=== PATIENT | female | born 1995 | race Two or more races ===

== ENCOUNTER 2024-06-16 15:12 | Emergency (ER) | payer BC, MEDICAID, SELFPAY ==
[2024-06-16 15:44] VITALS: BP 144/69; PULSE 97; RESP 18; TEMP 36.9; O2SAT 99; BMI 34.3
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
[2024-06-16] MEDS: IBUPROFEN TAB 400 MG TABLET 800 MG PO (16:46)
== END 2024-06-16 17:45 | disposition home or self-care (01) ==
PROVIDERS: Emergency Provider Emergency Medicine; PCP Nurse Practitioner Family
DX: S80.02XA Contusion of left knee, initial encounter (principal); M79.662 Pain in left lower leg; W50.1XXA Accidental kick by another person, initial encounter
CPT/HCPCS: 73562; 73590; 99283; A9270

== ENCOUNTER 2025-03-13 03:12 | Inpatient (IN) | payer BC, MEDICAID, SELFPAY ==
[2025-03-13] VITALS (92 sets, daily range): BP systolic 89–129; BP diastolic 56–74; PULSE 62–106; RESP 17–99; TEMP 36.6–37.1; O2SAT 92–100; BMI 37.0
[2025-03-13 03:46] LABS: ROM Kit Exp Date# 01/18/2028; ROM Kit Lot # 58104371; ROM Swab Mixed By: TA; Rupture of Fetal Membranes Positive (Negative); Swb Mxed in Solvent 1 min? Yes
--- NOTE | 2025-03-13 04:45 | XR_ITS ---
Examination: Complete OB ultrasound greater than 14 weeks Date and time of exam: March 13, 2025 0528 hrs. Indications: Leaking amniotic fluid beginning 4 hours ago, labor evaluation Findings: Viable intrauterine single fetus with single amniotic sac presentation cephalic Cardiac motion 137 BPM Placenta anterior grade 2 Umbilical cord insertion seen Amniotic fluid index 4.4 cm Cervix 3.8 cm Ovaries obscured by the fetus. Composite estimated gestational age based on BPD, head circumference, abdominal circumference, femur length is 39 weeks 6 days, estimated weight 3916.9 g. Survey of intracranial anatomy, spinal anatomy, abdominal anatomy, four-chamber heart performed with no abnormalities identified. Impression: Viable intrauterine gestation cephalic presentation.
--- NOTE | 2025-03-13 05:02 | PD.LDHP ---
Documentation for date of: 03/13/25 OB Labor/Induct. HPI History of Present Illness History of present illness: H and P dictated on STAT line #9 in Nuance: [id number] Meds Home Medications and Allergies Home Medications ?Medication ?Instructions ?Recorded ?Confirmed ?Type ferrous sulfate 325 mg (65 mg mg 03/13/25 History iron) tablet Allergies Allergy/AdvReac Type Severity Reaction Status Date / Time No Known Allergies Allergy Verified 03/13/25 03:47 OB Exam Physical Exam Vital signs: Pulse BP Pulse Ox 82 111/68 98 03/13/25 04:44 03/13/25 04:44 03/13/25 04:09 OB Results Labs 03/13/25 04:59
[2025-03-13 05:10] LABS: Basophils # (Auto) 0.0 Thou/mm3 (0.0-0.2); Basophils % (Auto) 0 % (0-2.5); Eosinophils # (Auto) 0.1 Thou/mm3 (0.0-0.5); Eosinophils % (Auto) 1 % (0-10); Hematocrit 33.2 % (36.0-46.0); Hemoglobin 11.3 g/dL (12.0-16.0); Immature Granulocytes Auto 0.05 Thou/mm3 (0.00-0.00); Lymphocytes # (Auto) 1.7 Thou/mm3 (1.0-4.8); Lymphocytes % (Auto) 16 % (10-50); Mean Corpuscular HGB Conc 34.0 g/dl (31.0-37.0); Mean Corpuscular Hemoglobin 31.8 pg (25.0-35.0); Mean Corpuscular Volume 94 fL (80-100); Monocytes # (Auto) 0.7 Thou/mm3 (0.0-0.8); Monocytes % (Auto) 7 % (0-12); Neutrophils # (Auto) 8.1 Thou/mm3 (1.8-7.7); Neutrophils % (Auto) 77 % (37-80); Nucleated Red Blood Cell # 0.00 Thou/mm3 (0.00-0.00); Nucleated Red Blood Cell % 0 /100 WBC (0); Platelet Count 213 Thou/mm3 (140-440); RDW Standard Deviation 47.3 fL (36.4-46.3); Red Blood Count 3.55 Miln/mm3 (4.00-5.20); White Blood Count 10.6 Thou/mm3 (3.6-11.0)
--- NOTE | 2025-03-13 05:13 | ESHP_ITS ---
RE: CARLOS MARCH : 1995 DATE OF ADMISSION: 03/13/2025 This is a 29-year-old 1, para 0 with due date of 03/12 with intrauterine of 40 weeks and 1 day, who presents to labor and delivery complaining of leaking fluid and is noted to be ruptured by a positive AmniSure. She reports occasional contraction. She reports normal movements. She denies any bleeding. She has care with [facility]. Her most recent ultrasound on 03/04 showed growth at the 25th percentile with a weight of 6 pounds 13 ounces. At this time, the nurse on her exam cannot confirm presentation, so an ultrasound is pending at this time. ALLERGIES: NO KNOWN DRUG ALLERGIES. MEDICATIONS: 1. multivitamin 1 p.o. daily. 2. Ferrous sulfate 325 mg 1 p.o. daily. PAST MEDICAL HISTORY: Abnormal Pap smear, endometrial polyp, polycystic ovarian syndrome, iron deficiency anemia. SOCIAL HISTORY: She denies any alcohol, drug use or smoking. FAMILY HISTORY: Maternal grandmother with diabetes and hypertension. PAST SURGICAL HISTORY: Denies. REVIEW OF SYSTEMS: She denies any chest pain, palpitations, cough, fever, shortness of breath or lower extremity pain. She denies any headache, change in vision or right upper quadrant pain. PHYSICAL EXAMINATION: VITAL SIGNS: Blood pressure 107/54, heart rate 88, respirations 18, temperature is 98.6, weight 205 pounds. HEENT: Oropharynx and sclerae are clear. LUNGS: Clear to auscultation bilaterally. HEART: Regular rate and rhythm. ABDOMEN: Gravid, consistent with estimated weight 7-1/2 pounds. PELVIC: See RN notes. EXTREMITIES: Nontender. SKIN: No gross rashes or lesion. NEUROLOGIC: No focal deficits. ASSESSMENT AND PLAN: Intrauterine at 40 weeks and 1 day, premature rupture of membranes. PLAN: Confirm presentation, induction of labor. Anticipate spontaneous vaginal delivery. Informed consent was obtained. The patient was made aware of the risks and complications of operative vaginal delivery and delivery and agrees with these modes of delivery if indicated. DT: 05:01:59 TT: 05:11:00 Ref: [id number] - TID: [id number]
[2025-03-13] MEDS: RINGERS LACTATED 1000 ML 1,000 ML 100 ML IV ×5 (05:37→23:47)
[2025-03-13 05:52] LABS: Syphilis Nonreactive (Nonreactive)
[2025-03-13] MEDS: OXYTOCIN in NS 30 units 30 UNIT/500 ML BAG IV (17:44)
[2025-03-14] VITALS (120 sets, daily range): BP systolic 73–157; BP diastolic 47–74; PULSE 53–120; RESP 14–20; TEMP 36.4–37.3; O2SAT 89–100
[2025-03-14] MEDS: RINGERS LACTATED 1000 ML 1,000 ML 100 ML IV ×2 (01:46→06:13)
--- NOTE | 2025-03-14 06:31 | PD.LDPN ---
Documentation for date of: 03/14/25 OB Labor Progress Note Pelvic Exam Dilation (cm): 4 Effacement (%): 80 station: -3 Amniotic membrane status: Leaking Contractions Monitor mode: Internal Contraction frequency: 2-3 Contraction intensity: Mild Status status: Category ll Assessment and Plan Comments: Intermittent prolonged and late decelerations with minimal and mild variability Declines further trial of vaginal delivery Delivery Informed Consent Obtained: Pt aware of the risks complications alternatives and benefits of the proposed procedure and she agrees.
[2025-03-14] MEDS: METOCLOPRAMIDE INJ 5 MG/ML VIAL 2 ML 10 MG IVP (06:49)
[2025-03-14] MEDS: FAMOTIDINE INJ 10 MG/ML VIAL 2 ML 20 MG IV (06:49)
[2025-03-14] MEDS: ceFAZolin/D5W 2 GM IV 2 GM/100 ML BAG IV (06:50)
--- NOTE | 2025-03-14 07:47 | ESDS_ITS ---
DS: Providers Provider Date of admission: 03/13/25 04:36 Primary care physician: Physician No Primary/Family Admitting Provider: Brian Monet MD Attending Provider on Admission: Brian Monet MD Consults: 03/14/25 07:47 Referral Routine Comment: Attending Provider on DC: Brian Monet MD Discharging Provider: Brian Monet MD DS: Diagnosis Problem List Completed Was Problem List Reviewed/Reconciled?: Yes Summary/Hosp Course Brief History: H and P dictated on STAT line #9 in Nuance: [id number] Peripartum Data Delivery Method: Low Transverse Episiotomy Description: None Time Spent with Patient Time attestation: Total time spent providing and/or coordinating discharge services: Exam Vital Signs Temp Pulse Resp BP Pulse Ox O2 Del Method 98.6 F 108 H 20 127/74 100 Room Air 03/14/25 01:58 03/14/25 06:39 03/13/25 16:41 03/14/25 06:39 03/14/25 06:59 03/13/25 16:41 Discharge Plan Plan Patient Disposition: HOME (Self Care) Patient condition on transfer: Stable Prescriptions/Referrals Prescriptions/Med Rec: New hydrocodone-acetaminophen 5-325 mg tablet 1 tab PO Q6H MDD 4 PRN (Reason: pain) Qty: 20 0RF ibuprofen 600 mg tablet 600 mg PO Q6H PRN (Reason: pain) Qty: 30 0RF Continued ferrous sulfate 325 mg (65 mg iron) tablet 325 mg PO DAILY Patient Comments: TAKE 1 TABLET BY MOUTH EVERY DAY Referrals: No Primary/Family,Physician [Primary Care Provider] Patient/Caregiver Discharge Instructions Discharge Activity: activity as tolerated Other Discharge Activity Instructions:: Follow up office 1 week. Education Materials: Nutrition While , : Caring for Yourself, C Section Dc Print Language: Hungarian Activity Restrictions/Additional Instructions: follow up in one week, for incision care. Stand Alone Forms: Faith Award Info., Patient Portal Info Letter Discharge Order Discharge Orders: Discharge (Routine); Ordered 03/16/25 Ordered By: Brian Monet Planned Discharge Date 03/16/25
--- NOTE | 2025-03-14 07:48 | PD.GYNPROC ---
Operative Note - [employer]CH[employer] Procedure Date of procedure: 03/14/25 Procedure Performed: Primary low-transverse section via Fenistil skin incision Indication: Intrauterine at 40 weeks and 2 days Prolonged rupture of membranes Premature rupture of membranes Induction of labor Category 2 tracing Declines further induction of labor Pre-Op diagnosis: Intrauterine at 40 weeks and 2 days Prolonged rupture of membranes Premature rupture of membranes Induction of labor Category 2 tracing Declines further induction of labor Post-Op diagnosis: Intrauterine at 40 weeks and 2 days Prolonged rupture of membranes Premature rupture of membranes Induction of labor Category 2 tracing Declines further induction of labor Right occiput transverse Anesthesia type: Epidural Procedure description: After proper informed consent was obtained and the patient was made aware of the risks, complications, alternatives and benefits of the proposed procedure she was taken to the operating room where she underwent induction of spinal anesthesia. She was prepped and draped in the usual sterile fashion. A timeout was performed.? A Pfannenstiel skin incision was made with the scalpel and carried through to the underlying layer of fascia with the Bovie. The fascia was nicked in the midline incision and the incision was extended bilaterally with the Bovie. The inferior aspect of the fascial incision was grasped with Hugo clamps elevated and the underlying rectus muscle dissected off with the Bovie. The superior aspect the fascial incision was grasped with Hugo clamps elevated and the underlying rectus muscle dissected off with the Bovie. The rectus muscles were in the midline. The peritoneum was grasped between 2 Gunn clamps and entered sharply with the Metzenbaum scissors. The peritoneum was extended superiorly and inferiorly with good visualization of the bladder. The vesicouterine peritoneum was incised transversely and the bladder flap created digitally. A [place] blade was inserted. A low transverse incision was made in the uterus with a scapel and the incision was extended digitally. The infant's head delivered and the mouth and nose were suctioned with the bulb suction. The shoulder and body delivered atraumatically. The cord was clamped after 30 second delayed cord clamping and the cord was cut.? The infant was handed off to the waiting Pediatric staff, cord blood was collected for lab testing. The placenta was removed complete and intact. The uterus was exteriorized and cleared of all clots and debris. The uterine incision was closed with #1-0 chromic catgut suture in a running interlocking fashion. A second layer of the same suture was used to imbricate the first layer and obtain excellent hemostasis. The vesicouterine peritoneum was closed with 2-0 chromic catgut suture in a running fashion. The firm uterus was returned to the abdomen. The gutters were cleared of all clots and debris. The peritoneum was closed with 0 chromic catgut suture in running fashion. The rectus muscle was closed with 0 chromic catgut suture. The fascia was closed with 0 Vicryl beginning at each angle and ending in the center in a running fashion. The subcutaneous tissue was irrigated with warmed normal saline solution and found to be hemostatic. The subcutaneous tissue was closed with 2-0 chromic catgut suture in a running fashion. The skin was closed with 4-0 Monocryl. A Dermabond Prineo dressing was applied and a sterile pressure dressing was applied.? She tolerated the procedure well. Counts were correct. I discussed with the patient the nature of her condition, intraoperative findings and expectation for recovery all? questions answered Specimen: none Estimated blood loss (ml): 600 Findings: Live male Cephalic presentation Apgars 9 and 9 Weight 6 lbs 11 oz. Clear amniotic fluid Normal-appearing uterus ovaries and fallopian tubes Placenta removed complete intact Complications: none Surgical staff VARINDER [address] , Surgeon Diagnosis Discharge Diagnosis (1) delivery delivered: Status: Acute Problem List Completed Was Problem List Reviewed/Reconciled?: Yes
[2025-03-14] MEDS: KETOROLAC INJ 30 MG/ML VIAL IVP (12:08)
[2025-03-14 14:00] LABS: Basophils # (Auto) 0.0 Thou/mm3 (0.0-0.2); Basophils % (Auto) 0 % (0-2.5); Eosinophils # (Auto) 0.0 Thou/mm3 (0.0-0.5); Eosinophils % (Auto) 0 % (0-10); Hematocrit 32.0 % (36.0-46.0); Hemoglobin 10.8 g/dL (12.0-16.0); Immature Granulocytes Auto 0.11 Thou/mm3 (0.00-0.00); Lymphocytes # (Auto) 1.1 Thou/mm3 (1.0-4.8); Lymphocytes % (Auto) 6 % (10-50); Mean Corpuscular HGB Conc 33.8 g/dl (31.0-37.0); Mean Corpuscular Hemoglobin 31.7 pg (25.0-35.0); Mean Corpuscular Volume 94 fL (80-100); Monocytes # (Auto) 0.7 Thou/mm3 (0.0-0.8); Monocytes % (Auto) 4 % (0-12); Neutrophils # (Auto) 16.4 Thou/mm3 (1.8-7.7); Neutrophils % (Auto) 89 % (37-80); Nucleated Red Blood Cell # 0.00 Thou/mm3 (0.00-0.00); Nucleated Red Blood Cell % 0 /100 WBC (0); Platelet Count 186 Thou/mm3 (140-440); RDW Standard Deviation 48.3 fL (36.4-46.3); Red Blood Count 3.41 Miln/mm3 (4.00-5.20); White Blood Count 18.3 Thou/mm3 (3.6-11.0)
[2025-03-14] MEDS: OXYTOCIN in NS 20 units 20 UNIT/1,000 ML BAG 125 UNIT IV (15:39)
--- NOTE | 2025-03-14 15:44 | PD.LDDELS ---
Data (Biggs) Data Hx Section: No : 1 Term: 0 : 0 Livin Abortions: Spontaneous & Theraputic: 0 Delivery Data (Biggs) Labor Data Initiation of labor: Augmentation Induction/Augmentation Agent: Cytotec-PO and Pitocin ROM date: 03/13/25 ROM time: 02:15 Amniotic membrane rupture type: Spontaneous Amniotic fluid description: Clear Delivery Data EDC: 03/12/25 EDC calculated by:: LMP/early US confirmation Onset of labor date: 03/14/25 Onset of labor time: 07:24 Complete dilation date: 03/14/25 Complete dilation time: 07:24 delivery date: 03/14/25 [place] delivery time: Gestational age (weeks): 40 Gestational age (days): 2 Placenta delivery date: 03/14/25 Placenta delivery time: Stage 1 total time: Labor - Stage 1 Duration 0 minutes Delivered by: Brian Monet Delivery nurse: fidel Fonseca nurse: Estefania Relief Docking Master at delivery: No Support person(s) at delivery: FOB Other staff at delivery: Mcelc, MODERATE NEEDS TEACHER RAMOC, technical testing engineer Delivery Method Delivery method: Low Transverse Presentation: Vertex position: OA Anesthesia Type Anesthesia Type: Epidural Anesthesia type: Epidural Placenta Placenta delivery description: Manual Removal Cord blood sent to lab: Yes cord blood collection: Cord Blood Type Episiotomy Episiotomy description: None EBL Estimated blood loss (ml): 600 Umbilical Cord cord description: 3 Vessels Additional Procedures None Complications Complications: None Data (Biggs) [place] Data order: 1 's gender: Male weight (gms): 6 lb 11.233 oz Weight (pounds): 6 lbs and 11.2 ozs [place] length: 21 in 1 minute: 9 5 minutes: 9
[2025-03-14] MEDS: SIMETHICONE 80 MG CHEW PO (17:08)
[2025-03-14] MEDS: HYDROcodone/APAP 5/325 TABLET 1 TAB PO (20:12)
[2025-03-14] MEDS: IBUPROFEN TAB 400 MG TABLET 800 MG PO (23:18)
[2025-03-15 03:10] VITALS: BP 112/75; PULSE 94; RESP 18; TEMP 36.4; O2SAT 97
--- NOTE | 2025-03-15 07:47 | ESPR_ITS ---
RE: CARLOS MARCH : 1995 DATE OF SERVICE: 03/15/2025 S: Postop day #1, the patient denies any problem or complaints. She is voiding. She is ambulating. She tolerated diet. She is passing flatus. She denies any excessive vaginal bleeding. She denies any dizziness or lightheadedness. She denies any chest pain, palpitations, shortness of breath or lower extremity pain or swelling. O: Vital Signs: Blood pressure is 112/75, heart rate 94, respirations 18, temperature 97.6, pulse oximetry is 97% on room air. Lungs: Clear to auscultation bilaterally. Heart: Regular rate and rhythm. Abdomen: Dressing dry and intact. Fundus is firm. Extremities: Nontender. LABORATORY DATA: Hemoglobin pre-delivery is 11.3. Post delivery is 10.8. ASSESSMENT: Postop day #1 status post delivery. PLAN: Remove dressing, DC IV, encourage ambulation, support, possible discharge home tomorrow. DT: 07:06:47 TT: 07:45:00 Ref: [id number] - TID: [id number]
[2025-03-15 08:15] VITALS: BP 99/64; PULSE 101; RESP 16; TEMP 36.7; O2SAT 97
[2025-03-15] MEDS: ENOXAPARIN SOD INJ 40 MG/0.4 ML SYRINGE SC (08:37)
[2025-03-15] MEDS: IBUPROFEN TAB 400 MG TABLET 800 MG PO ×2 (08:37→16:51)
[2025-03-15] MEDS: DOCUSATE SOD 100 MG CAPSULE PO (08:37)
[2025-03-15 16:45] VITALS: BP 114/73; PULSE 103; RESP 16; TEMP 37.1
[2025-03-15 20:30] VITALS: BP 100/65; PULSE 100; RESP 18; TEMP 36.7; O2SAT 97
[2025-03-16] MEDS: IBUPROFEN TAB 400 MG TABLET 800 MG PO (03:54)
--- NOTE | 2025-03-16 07:11 | ESPR_ITS ---
RE: CARLOS MARCH : 1995 DATE OF SERVICE: 03/16/2025 Postop day number 2. The patient denies any problem or complaint. She is voiding. She is ambulating. She is tolerating regular diet. She is passing flatus. She denies any excessive vaginal bleeding. She denies any dizziness or lightheadedness. She denies any chest pain, palpitations, shortness of breath or lower extremity pain. OBJECTIVE: Vital Signs: Blood pressure is 100/65, heart rate 100, respirations 18, temperature is 98.1, pulse ox is 97% on room air. Lungs: Clear to auscultation bilaterally. Heart: Tachycardic, but regular rhythm. Abdomen: Incision clear and intact. Fundus is firm. Extremities: Nontender. ASSESSMENT: Postoperative day number 2, status post delivery. PLAN: Discharge home. Discharge instructions given. Follow up in the office in 1 week. DT: 07:05:15 TT: 07:09:00 Ref: [id number] - TID: [id number]
[2025-03-16 07:28] VITALS: BP 103/68; PULSE 80; RESP 20; TEMP 36.7; O2SAT 98
[2025-03-16] MEDS: DOCUSATE SOD 100 MG CAPSULE PO (08:01)
[2025-03-16] MEDS: ENOXAPARIN SOD INJ 40 MG/0.4 ML SYRINGE SC (08:01)
[2025-03-16] MEDS: ACETAMINOPHEN 325 MG TABLET 650 MG PO (08:01)
[2025-03-16 09:16] VITALS: BP 112/73; PULSE 108; RESP 20; TEMP 36.4; O2SAT 98
[2025-03-16 09:52] VITALS: PULSE 103; O2SAT 97
[2025-03-16 11:07] LABS: Basophils # (Auto) 0.0 Thou/mm3 (0.0-0.2); Basophils % (Auto) 0 % (0-2.5); Eosinophils # (Auto) 0.1 Thou/mm3 (0.0-0.5); Eosinophils % (Auto) 1 % (0-10); Hematocrit 31.7 % (36.0-46.0); Hemoglobin 10.6 g/dL (12.0-16.0); Immature Granulocytes Auto 0.10 Thou/mm3 (0.00-0.00); Lymphocytes # (Auto) 1.3 Thou/mm3 (1.0-4.8); Lymphocytes % (Auto) 8 % (10-50); Mean Corpuscular HGB Conc 33.4 g/dl (31.0-37.0); Mean Corpuscular Hemoglobin 31.6 pg (25.0-35.0); Mean Corpuscular Volume 95 fL (80-100); Monocytes # (Auto) 0.7 Thou/mm3 (0.0-0.8); Monocytes % (Auto) 5 % (0-12); Neutrophils # (Auto) 13.0 Thou/mm3 (1.8-7.7); Neutrophils % (Auto) 86 % (37-80); Nucleated Red Blood Cell # 0.00 Thou/mm3 (0.00-0.00); Nucleated Red Blood Cell % 0 /100 WBC (0); Platelet Count 211 Thou/mm3 (140-440); RDW Standard Deviation 48.5 fL (36.4-46.3); Red Blood Count 3.35 Miln/mm3 (4.00-5.20); White Blood Count 15.1 Thou/mm3 (3.6-11.0)
== END 2025-03-16 14:11 | disposition home or self-care (01) | DRG 788 ==
LOC: S4SX 03-14 06:46 → S4NX 03-14 07:28
PROVIDERS: Admitting Provider Specialist; Visit Provider Specialist
PROC: 10D00Z1 Extraction of Products of Conception, Low, Open Approach (ICD-10-PCS; CPT 59514; principal; 2025-03-14 07:00)
DX: O48.0 Post-term pregnancy (principal); Z37.0 Single live birth; Z3A.40 40 weeks gestation of pregnancy; O76 Abnormality in fetal heart rate and rhythm complicating labor and delivery; O42.92 Full-term premature rupture of membranes, unspecified as to length of time between rupture and onset of labor
CPT/HCPCS: 36415; 59025; 76805; 84112; 85025; 86780; 86850; 86900; 86901; A4217; A4314; A4649; J0689; J1650; J1885; J2250; J2274; J2371; J2405; J2590; J2704; J2765; J2795; J3010; J3490; J7120; A9270; J2270

== ENCOUNTER 2025-06-02 14:07 | Outpatient (AMBR) | payer BC, MEDICAID, SELFPAY ==
--- NOTE | 2025-06-02 15:04 | LACNOTE_ITS ---
Assessment LAC Breast Assessment Breast Assessment Bilateral: Breast Assessment Comment: breasts large and penulous, not full to touch or sight. Alternative Milk Expression Alternative Milk Expression Alternative Method Used: Yes Method Used: Pumping Alternative Method Comment: mom states at around 3 weeks post she started to feel less and less milk, baby was still cluster feeding at this time and she felt that it was due to low milk supply. baby was also sick at this time which compounded her issues, at around week 4 with second ER visit for baby and congestion, she started to give formula. [place]ron that it was easier than what she was doing so she mostly did bottles with formula and whatever she could get from pumping breasts. Alternative Method Used Reason: Stimulation and Poor Feeding Alternative Method Produced Milk / Colostrum: Yes Production Amount: 2 Production ounces or mls: ounces Pump Used: Electric Pumping Frequency Per Day: 4 Pumping Frequency Comment: mom states she is only doing pumping around every 3-4 hours, but only during the day not at night. explained stimulation and emptying breasts out completely. encouraged her to try adding a couple of extra pumping cycles to her day, one right before bed and one right as she gets up in the am. explained that if baby is active at the breast but not for long period she can still pump after feeding to continue with stimulation. LAC Assessment Breast Feeding Assessment Date of : 04/13/25 Current Age of baby: 10 (weeks) Weight: 3033.399 g Current weight of baby: 6350.293 g # of Stool voids in last 24 hrs: 8 Stool Size: Large Color of Stools: greenish brown [place] # of Urine voids in last 24 hrs: 6 Color of Urine: yellow Breast Feeding Ability: Poor Complications: Difficult Latch Complications Comment: baby has been getting bottles for about 5 weeks, making going to breast hard for baby to stay on or transfer good milk supply. Activity Level: Crying [place] Muscle Tone: Tense [place] Suck Quality: Areolar Compression and Tongue Retracts Effective [place] Suck: No Swallow: Occasional [place] Jaw: Receding and Clentched [place] Lip Seal: Poor, Weak Suction and Tight Lips Feeding Posistion: Cross Cradle Additional Latch or Posistion Assistance Needed: Minimal Breast Feeding Comment: baby joan mom in the cradle hold to feed, he had just had a bottle about 1 hour prior to visit. he was not giving feeding cues, explained to mom that this was most likely not the ideal time to try to get him to latch. I did however show mom how to use the nipple shield as well as the SNS feeder. LAC Intervention Interventions Tools: Nipple Shield, Pump and Aid Nipple Shield Size: Medium Techniques Discussed: Latch, Position and Pumping Discharge Follow Up Appointment Date and Time: June 09, 2025 at 2 pm Other Referral Made: Yes Feeding Preference at Discharge: Breast Milk and Formula LAC Latch Score LATCH Score Latch: Repeat Attempt to Hold Nipple Audible Swallow: Few, With Stimulation Nipple Type: Everted After Stimulation Comfort: Soft, Nontender Hold: Minimal Assistance Needed Total Score: 7 LAC Oral Assessment [place] Oral Assessment Prenulum Level: Anterior Lip: Tight Upper Lip Palate: Normal / Intact Dental Referral made: Yes OP DC Assessment Discharge Follow Up Appointment Date and Time: June 09, 2025 at 2 pm Other Referral Made: Yes Visit Complete?: Yes
== END 2025-06-25 23:59 | disposition home or self-care (01) ==
LOC: HODLAC 14:07
DX: Z39.1 Encounter for care and examination of lactating mother (principal)

== ENCOUNTER 2025-06-09 14:06 | Outpatient (AMBR) | payer BC, MEDICAID, SELFPAY ==
--- NOTE | 2025-06-09 15:30 | LACNOTE_ITS ---
Assessment Alternative Milk Expression Alternative Milk Expression Alternative Method Used: Yes Method Used: Pumping Alternative Method Comment: mom continues to state that she isn't able to get baby to breast but she is not pumping instead to assure she has breast stimulation. explained supply and demand again to reiterate that in order for her milk supply to increase she needs stimulation to the breast, either baby or pumping every 2-3 hours including at night. explained that she would not see increase in milk supply unless she is getting stimulation even if she started medication that physician prescribed. Metoclpromide (Reglan). Alternative Method Used Reason: Stimulation and Poor Feeding Alternative Method Produced Milk / Colostrum: Yes Production Amount: 1 Production ounces or mls: ounces Pump Used: Electric Pumping Frequency Per Day: 2 Pumping Frequency Comment: needs to pump every 2-3 hours for 20-30 minutes, including at night. double pumping LAC Assessment Breast Feeding Assessment [place] Complications: Difficult Latch Complications Comment: baby not going to breast often, 1-2 times a day for less than 10 minutes [place] Lip Seal: Tight Lips Breast Feeding Comment: baby did have tongue tie, lip tie and left buccal pad tie release thrusJune [address] Zuleyma DE SANITAGO Intervention Interventions Techniques Discussed: Latch, Position and Pumping Intervention Comments: encouraged mom to continue to do as much pumping to increase her milk supply Discharge Follow Up Appointment Date and Time: 1 week or as needed LAC Oral Assessment [place] Oral Assessment Prenulum Level: Normal Lip: Normal Exam Palate: High Oral Assessment Comment: tie release done 5 days ago, mother states all is going well, mouth exercises are being done every 8 hours as instructed. mom states baby tolerates well LAC Education Education : Education Topics: Establishing Milk Supply, Hunger Cues, Infant Stomach Capacity, Milk Production, Signs of Adequate Intake and Infant Stomach Capacity With Regard to Formula OP DC Assessment Discharge Follow Up Appointment Date and Time: 1 week or as needed Visit Complete?: Yes
== END 2025-06-25 23:59 | disposition home or self-care (01) ==
LOC: HODLAC 14:06
DX: Z39.1 Encounter for care and examination of lactating mother (principal)